=== PATIENT | female | born 1985 | race Caucasian/White ===

== ENCOUNTER 2017-03-21 09:08 | Emergency (ER) | payer OTHER ==
[~2017-03-21] VITALS: Ht 157.5 cm; Wt 81.0 kg
[~2017-03-21 09:08] MED LIST: ADDERALL10 MG PO; ALPRAZOLAM0.5 MG PO; INDOCIN50 MG PO; PERCOCET 5-3251 EACH PO; SERTRALINE HCL50 MG PO; VICODIN 5-5001 EACH PO
[2017-03-21] MEDS ORDERED: KEFLEX500 MG PO (10:31)
[2017-03-21 10:49] VITALS: BP 132/82
== END 2017-03-21 10:55 | disposition home or self-care (01) ==
LOC: EME 09:08
PROC: 0JCM0ZZ Extirpation of Matter from Left Upper Leg Subcutaneous Tissue and Fascia, Open Approach (ICD-10-PCS; principal; 2017-03-21)
DX: S71.142A Puncture wound with foreign body, left thigh, initial encounter (principal); Y93.89 Activity, other specified
CPT/HCPCS: 99281; 99284

== ENCOUNTER 2017-06-08 03:27 | Emergency (ER) | payer OTHER ==
[~2017-06-08] VITALS: Ht 157.5 cm; Wt 83.7 kg
[~2017-06-08 03:27] MED LIST changes: +KEFLEX500 MG PO
[2017-06-08 03:57] LABS: HEMATOCRIT 38.7 % (36.0-46.0); MCH 29.3 PG (29.0-34.0); MCHC 34.4 G/DL (30.0-36.0); MCV 85.2 FL (83-99); MEAN PLAT.VOLUME 10.6 uM^3 (9.5-12.4); PLATELET COUNT 210 K/uL (156-360); RBC DIS.WIDTH-CV 12.1 % (11.8-14.6); RBC DIS.WIDTH-SD 37.8 % (39-53); RED BLOOD COUNT 4.54 M/uL (3.80-5.20); WHITE BLOOD COUNT 10.6 K/uL (4.1-10.2)
[2017-06-08 04:17] LABS: CHLORIDE 105 mEq/L (99-109); POTASSIUM 3.7 mEq/L (3.7-5.4)
[2017-06-08 04:18] LABS: SODIUM 134 mEq/L (136-147)
[2017-06-08 04:21] LABS: ANION GAP 11 MEQ/L (2-14)
[2017-06-08 04:23] LABS: GFR ESTIMATE (CALCULATED) > 59 mL/min/
[2017-06-08 04:24] LABS: UREA NITROGEN (BUN) 15 mg/dL (9-23)
[2017-06-08 04:44] LABS: ADD MIUA? YES; BILIRUBIN NEGATIVE; BLOOD LARGE; COLOR YELLOW ((YELLOW)); GLUCOSE (STRIP) NEGATIVE; KETONES 5; LEUKOCYTES NEGATIVE; NITRITE NEGATIVE; PROTEIN (STRIP) 30; SPECIFIC GRAVITY 1.016 (1.000-1.030); UROBILINOGEN 0.2 MG/DL (0.2-1.0)
[2017-06-08 04:56] LABS: GLUCOSE 86 mg/dL (70-99)
[2017-06-08 04:58] LABS: RED BLOOD CELLS TNTC /HPF (0-5)
[2017-06-08 05:02] LABS: EPITHELIAL CELLS RARE /HPF; WHITE BLOOD CELLS NONE SEEN /HPF (0-5)
[2017-06-08 05:03] LABS: BACTERIA RARE /HPF; CASTS NONE SEEN /LPF; MUCUS RARE /LPF; UCUL ADDED? NO
[2017-06-08 06:17] VITALS: BP 122/79
== END 2017-06-08 06:18 | disposition home or self-care (01) ==
LOC: EME 03:27
PROVIDERS: Physician Assistant
DX: O20.9 Hemorrhage in early pregnancy, unspecified (principal); O99.331 Smoking (tobacco) complicating pregnancy, first trimester; F17.200 Nicotine dependence, unspecified, uncomplicated; Z3A.11 11 weeks gestation of pregnancy
CPT/HCPCS: 76801; 80048; 81003; 84702; 85027; 86900; 86901; 99281; 99284